=== PATIENT | female | born 1980 | race Hispanic/Latino ===

== ENCOUNTER 2019-02-17 17:08 | Emergency (ER) | payer OTHER ==
[2019-02-17] MEDS ORDERED: DEXAMETHASONE SOD PHOSPHATE 10MG/ML 1ML VIAL ONE (17:42)
[2019-02-17] MEDS ORDERED: ONDANSETRON HCL 4 MG/2 ML VIAL ONE (17:42)
[2019-02-17] MEDS ORDERED: SODIUM CHLORIDE 0.9% 1000ML 1,000 ML IV ONE (17:43)
== END 2019-02-17 19:15 | disposition home or self-care (01) ==
LOC: EDH 17:08
DX: F45.8 Other somatoform disorders (principal); R11.2 Nausea with vomiting, unspecified; K08.89 Other specified disorders of teeth and supporting structures; F41.9 Anxiety disorder, unspecified; Z98.890 Other specified postprocedural states
CPT/HCPCS: 96361; 96374; 96375; 99284; J1100; J2405; J7030

== ENCOUNTER 2020-04-06 06:17 | Day surgery (SDC) | payer OTHER ==
[2020-03-30 11:28] LABS: BASOPHILS % (AUTO) 0.4 % (0.0-5.0); EOSINOPHILS % (AUTO) 1.1 % (0.0-8.0); HEMATOCRIT 41.3 % (36-48); LYMPHOCYTES % (AUTO) 16.3 % (21.0-51.0); MEAN CORPUSCULAR HGB CONC 32.9 g/dL (32.0-36.0); MEAN CORPUSCULAR VOLUME 85.2 fL (79-99); MONOCYTES % (AUTO) 7.9 % (3.0-13.0); PLATELET COUNT (AUTO) 302 K/uL (130-400); RED BLOOD CELL COUNT(AUTO) 4.85 MIL/uL (4.00-5.50); RED CELL DISTRIBUTION WIDTH 13.5 % (11.0-15.5); WHITE BLOOD COUNT (AUTO) 9.5 K/uL (4.8-10.8)
[2020-04-05 11:09] VITALS: BP 116/73
--- NOTE | 2020-04-05 11:45 | NUR ---
report called dr moore and informed covid test was not run by lab. ok to do rapid one am of surgery if ok with dr boyd and pt not symptomatic. as per dr boyd ok to proceed, pt notified test will be done in am and voiced understanding
[2020-04-06] VITALS (17 sets, daily range): BP systolic 88–137; BP diastolic 32–82
[~2020-04-06] VITALS: Ht 160 cm; Wt 85.5 kg
[~2020-04-06 06:17] MED LIST: ALPR0.25 PO; CLON0.5T23 PO; DULO30CA2 PO; QUET50TA15 PO
[2020-04-06] MEDS ORDERED: LACTATED RINGERS 1000ML 1,000 ML IV ONE (06:53)
[2020-04-06] MEDS: CEFAZOLIN SODIUM 1 GM VIAL ONE ×2 (07:41→10:19)
[2020-04-06] MEDS ORDERED: CALDOLOR 800MG+NS 250ML 250 ML IV ONE (08:32)
[2020-04-06] MEDS ORDERED: STRONG IODINE SOLN 14ML BOTTLE ONE (09:35)
[2020-04-06] MEDS ORDERED: MIDAZOLAM HCL 1 MG/ML 2ML VIAL ONE (09:55)
[2020-04-06] MEDS ORDERED: PROPOFOL 10 MG/ML 20ML VIAL IV ONE (09:55)
[2020-04-06] MEDS ORDERED: LIDOCAINE PF 2% 5ML ABBOJECT ONE (09:55)
[2020-04-06] MEDS ORDERED: CEFAZOLIN SODIUM 1 GM VIAL IVP ONE (10:19)
[2020-04-06] MEDS ORDERED: DEXAMETHASONE SOD PHOSPHATE 4 MG/ML 1ML VIAL ONE (10:27)
[2020-04-06] MEDS ORDERED: ONDANSETRON HCL 4 MG/2 ML VIAL ONE (10:27)
--- NOTE | 2020-04-06 11:50 | NUR ---
PATIENT ARRIVED TO DAY PATIENT VIA STRETCHER BY ASHLEIGH WARNER. PATIENT AAOX3, RESPIRATIONS UNLABORED, VITAL SIGNS STABLE. [place] PAD DRY, NO DRAINAGE NOTED. PATIENT DENIES ANY PAIN AT THIS TIME.
--- NOTE | 2020-04-06 12:30 | NUR ---
DISCHARGE INSTRUCTIONS PROVIDED VIA TELEPHONE TO PATIENT'S MOTHER (FABY BOLTONA GURPREET). FOLLOW UP APPOINTMENT PROVIDED AND PRESCRIPTIONS/HANDOUTS GIVEN TO PATIENT. ALL QUESTIONS/CONCERNS ADDRESSED. PATIENT AND FAMILY MEMBER VERBALIZED UNDERSTANDING.
--- NOTE | 2020-04-06 13:00 | NUR ---
PATIENT DISCHARGED FROM FACILITY VIA WHEELCHAIR AND ASSISTED INTO PRIVATE VEHICLE DRIVEN BY FAMILY.
== END 2020-04-06 13:00 | disposition home or self-care (01) ==
LOC: DAH 06:17
PROVIDERS: ATTEND Obstetrics & Gynecology
DX: R87.613 High grade squamous intraepithelial lesion on cytologic smear of cervix (HGSIL) (principal); K21.9 Gastro-esophageal reflux disease without esophagitis; F41.9 Anxiety disorder, unspecified; E66.9 Obesity, unspecified
CPT/HCPCS: 36415 ×2; 57520; 84703; 85025; 86850 ×2; 86900 ×2; 86901 ×2; 87426; A4215; A4221; A4222; A4223; A4351; A4510; A4600; A4663; A6260; J0690 ×2; J1100; J1741; J2001; J2250; J2405; J2704; J7120

== ENCOUNTER → 2023-12-12 | Outpatient (CLI) | payer BC | END | disposition home or self-care (01) | LOC: RAH 15:35 | PROVIDERS: ATTEND Family Medicine | DX: Z12.31 Encounter for screening mammogram for malignant neoplasm of breast (principal) | CPT/HCPCS: 77067 ==